=== PATIENT | female | born 1945 | race Two or more races ===

== ENCOUNTER 2017-08-05 12:25 | Outpatient (CLI) | payer OTHER ==
[~2017-08-05 12:25] MED LIST: SIMVASTATIN5 MG
== END 2017-08-05 12:41 | disposition home or self-care (01) ==
LOC: SONOGRAMA 12:25
DX: M75.101 Unspecified rotator cuff tear or rupture of right shoulder, not specified as traumatic (principal)

== ENCOUNTER 2018-01-26 11:11 | Outpatient (CLI) | payer OTHER | END 2018-01-26 16:46 | disposition home or self-care (01) | LOC: NUCLEAR 11:11 | DX: I73.9 Peripheral vascular disease, unspecified (principal); I70.211 Atherosclerosis of native arteries of extremities with intermittent claudication, right leg; I70.212 Atherosclerosis of native arteries of extremities with intermittent claudication, left leg ==

== ENCOUNTER 2018-01-31 07:22 | Outpatient (CLI) | payer OTHER | END 2018-01-31 07:31 | disposition home or self-care (01) | LOC: NUCLEAR 07:22 | DX: I73.9 Peripheral vascular disease, unspecified (principal); I80.209 Phlebitis and thrombophlebitis of unspecified deep vessels of unspecified lower extremity ==

== ENCOUNTER 2018-04-05 09:11 | Outpatient (CLI) | payer OTHER | END 2018-04-05 09:17 | disposition home or self-care (01) | LOC: SONOGRAMA 09:11 | DX: M25.511 Pain in right shoulder (principal) ==